=== PATIENT | male | born 1985 | race Hispanic/Latino ===

== ENCOUNTER 2018-11-17 15:33 | Inpatient (IN) | payer OTHER ==
[~2018-11-17] VITALS: Ht 165.1 cm; Wt 85.4 kg
[2018-11-17] MEDS ORDERED: TRAZ-160 PO (15:53)
[2018-11-17] MEDS ORDERED: CELE10TA PO (15:53)
[2018-11-17] MEDS ORDERED: ZANTTAB PO (15:53)
[2018-11-17] MEDS ORDERED: NS 1,000 ML IV ONE (16:00)
[2018-11-17 16:24] LABS: BASO # 0.1 10^3/uL (0.0-0.2); EOS # 0.1 10^3/uL (0.0-0.50); EOS % 0.9 % (0.0-3.0); HEMATOCRIT 44.8 % (42.0-52.0); HEMOGLOBIN 15.1 g/dl (13.5-17.5); LYMPH # 3.7 10^3/uL (1.5-4.5); LYMPH % 35.5 % (24.0-44.0); MEAN CORPUSCULAR HEMOGLOBIN 29.5 pg (27.0-33.0); MEAN CORPUSCULAR HGB CONC 33.7 g/dl (32.0-36.5); MEAN CORPUSCULAR VOLUME 87.5 fl (80.0-96.0); MONO # 0.9 10^3/uL (0.0-0.8); MONO % 8.4 % (0.0-5.0); NEUTROPHILS # 5.6 10^3/uL (1.8-7.7); NEUTROPHILS % 53.9 % (36.0-66.0); PLATELET COUNT, AUTOMATED 299 10^3/uL (150-450); RED BLOOD COUNT 5.12 10^6/uL (4.30-6.10); WHITE BLOOD COUNT 10.4 10^3/uL (4.0-10.0)
[2018-11-17 16:45] LABS: ACETAMINOPHEN LEVEL < 2.0 UG/ML (10.0-30.0); ALBUMIN 4.5 GM/DL (3.2-5.2); ALT/SGPT 86 U/L (12-78); BILIRUBIN,DIRECT 0.2 MG/DL (0.0-0.2); BILIRUBIN,TOTAL 0.9 MG/DL (0.2-1.0); BLOOD UREA NITROGEN 8 MG/DL (7-18); CARBON DIOXIDE LEVEL 32 MEQ/L (21-32); CHLORIDE LEVEL 105 MEQ/L (98-107); CREATININE FOR GFR 1.09 MG/DL (0.70-1.30); ETHYL ALCOHOL (ETHANOL) < 0.003 % (0.000-0.010); GLOMERULAR FILTRATION RATE > 60.0 (>60); GLUCOSE, FASTING 87 MG/DL (70-100); POTASSIUM SERUM 3.3 MEQ/L (3.5-5.1); SALICYLATE LEVEL < 1.7 MG/DL (5.0-30.0); SODIUM LEVEL 141 MEQ/L (136-145); TOTAL PROTEIN 8.3 GM/DL (6.4-8.2)
[2018-11-17] MEDS ORDERED: CHARCOAL ACTIVATED LIQUID 25 GM/120 ML BTL PO ONE (16:45)
[2018-11-17 17:01] LABS: AMPHETAMINES LEVEL URINE NEGATIVE (NEGATIVE); BARBITURATES URINE NEGATIVE (NEGATIVE); BENZODIAZEPINES URINE NEGATIVE (NEGATIVE); CANNABINOIDS URINE NEGATIVE (NEGATIVE); COCAINE METABOLITE URINE NEGATIVE (NEGATIVE); METHADONE URINE NEGATIVE (NEGATIVE); OPIATES URINE NEGATIVE (NEGATIVE); PHENCYCLIDINE URINE NEGATIVE (NEGATIVE)
[2018-11-17] MEDS ORDERED: DIPH25TA4 PO (17:21)
[2018-11-17] MEDS ORDERED: LEXA1TAB PO (17:26)
[2018-11-17] MEDS: NS 1,000 ML IV SCH (18:19)
--- NOTE | 2018-11-17 18:53 | HPEPDOC ---
[facility] Medical History & Physical Date of Admission November 17, 2018 History and Physical CHIEF COMPLAINT: Suicide attempt/drug overdose HISTORY OF PRESENT ILLNESS: 33 yo male for intentional drug overdose with citalopram and benadryl as suicide attempt. Patient states has been having personal issues with his girlfriend. States this is not his first attempt suicide, previously few months ago in [facility]. Apparently he had driven himself to the hospital, then called his senior for help (Jenae Rosales). Currently denies chest pain, shortness of breath, headaches, abdominal pain, n/v/d. PAST MEDICAL HISTORY: Previous suicide attempt. Depression. ALLERGIES: Please see below. REVIEW OF SYSTEMS: Negative except as per HPI. HOME MEDICATIONS: Please see below. PHYSICAL EXAMINATION: VSS General: NAD, lying comfortably in bed, disheveled HEENT: NC/AT, active charcoal residue on lips, EOMI, PERRL Lungs: CTA B/L Heart: +S1S2, RRR Abd: soft, NT, +BS Ext: no edema LABORATORY DATA: See below. MICROBIOLOGY: Please see below. ASSESSMENT: 33 yo male for intentional drug overdose: #suicide attempt - s/p activated charcoal - poison control was contacted in ER - recommend 24 hours telemetry monitoring - suicide precautions #depression - anti-depressants on hold #DVT prophylaxis - mechanical Dispo: monitor on tele for 24 hours, then psych c/s Vital Signs Vital Signs Date Time Temp Pulse Resp B/P (MAP) Pulse Ox O2 Delivery O2 Flow Rate FiO2 11/17/18 18:18 97.8 93 96 11/17/18 18:15 131/70 (90) 11/17/18 15:34 18 Room Air Laboratory Data Labs 24H Laboratory Tests 2 11/17/18 15:56: Immature Granulocyte % (Auto) 0.3, White Blood Count 10.4H, Red Blood Count 5.12, Hemoglobin 15.1, Hematocrit 44.8, Mean Corpuscular Volume 87.5, Mean Corpuscular Hemoglobin 29.5, Mean Corpuscular Hemoglobin Concent 33.7, Red Cell Distribution Width 13.2, Platelet Count 299, Neutrophils (%) (Auto) 53.9, Lymphocytes (%) (Auto) 35.5, Monocytes (%) (Auto) 8.4H, Eosinophils (%) (Auto) 0.9, Basophils (%) (Auto) 1.0, Neutrophils # (Auto) 5.6, Lymphocytes # (Auto) 3.7, Monocytes # (Auto) 0.9H, Eosinophils # (Auto) 0.1, Basophils # (Auto) 0.1, Nucleated Red Blood Cells % (auto) 0.0, Anion Gap 4L, Glomerular Filtration Rate > 60.0, Calcium Level 9.0, Aspartate Amino Transf (AST/SGOT) 45H, Alanine Aminotransferase (ALT/SGPT) 86H, Alkaline Phosphatase 83, Total Bilirubin 0.9, Direct Bilirubin 0.2, Total Protein 8.3H, Albumin 4.5, Albumin/Globulin Ratio 1.18, Thyroid Stimulating Hormone (TSH) 1.940, Salicylates Level < 1.7L, Acetaminophen Level < 2.0L, Ethyl Alcohol Level < 0.003 11/17/18 16:17: Urine Amphetamines Screen NEGATIVE, Urine Benzodiazepines Screen NEGATIVE, Urine Opiates Screen NEGATIVE, Urine Methadone Screen NEGATIVE, Urine Barbiturates Screen NEGATIVE, Urine Phencyclidine Screen NEGATIVE, Urine Cocaine Metabolite Screen NEGATIVE, Urine Cannabinoids Screen NEGATIVE CBC/BMP Laboratory Tests 11/17/18 15:56 Red Blood Count 5.12, Mean Corpuscular Volume 87.5, Mean Corpuscular Hemoglobin 29.5, Mean Corpuscular Hemoglobin Concent 33.7, Red Cell Distribution Width 13.2, Neutrophils (%) (Auto) 53.9, Lymphocytes (%) (Auto) 35.5, Monocytes (%) (Auto) 8.4 H, Eosinophils (%) (Auto) 0.9, Basophils (%) (Auto) 1.0, Neutrophils # (Auto) 5.6, Lymphocytes # (Auto) 3.7, Monocytes # (Auto) 0.9 H, Eosinophils # (Auto) 0.1, Basophils # (Auto) 0.1 Home Medications Scheduled Escitalopram Oxalate (Lexapro) 10 Mg Tablet, 10 MG PO DAILY Ranitidine Hcl (Zantac) 150 Mg Tablet, 1 TAB PO DAILY Trazodone HCl (Trazodone HCl) 50 Mg Tablet, 50 MG PO QPM Scheduled PRN diphenhydrAMINE HCl (diphenhydrAMINE HCl) 25 Mg Tablet, 25 MG PO DAILY PRN for ITCHING Allergies Coded Allergies: No Known Drug Allergies (Verified Allergy, Unknown, 11/17/18) XAVI VASQUEZ MD November 17, 2018 18:53
--- NOTE | 2018-11-17 21:37 | ECGEPIP ---
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
[2018-11-17 21:46] VITALS: BP 126/77; O2SAT 98
[2018-11-17 22:00] VITALS: O2SAT 97
[2018-11-17 23:00] VITALS: O2SAT 97
[2018-11-18] VITALS (11 sets, daily range): BP systolic 114–131; BP diastolic 63–80; O2SAT 97–98
[2018-11-18] MEDS: NS 1,000 ML IV SCH (03:54)
[2018-11-18 05:39] LABS: BASO # 0.1 10^3/uL (0.0-0.2); BASO % 1.1 % (0.0-1.0); EOS # 0.2 10^3/uL (0.0-0.50); HEMATOCRIT 42.4 % (42.0-52.0); LYMPH # 3.4 10^3/uL (1.5-4.5); MEAN CORPUSCULAR HEMOGLOBIN 29.6 pg (27.0-33.0); MEAN CORPUSCULAR VOLUME 89.6 fl (80.0-96.0); MONO % 11.9 % (0.0-5.0); NEUTROPHILS # 3.8 10^3/uL (1.8-7.7); NEUTROPHILS % 44.8 % (36.0-66.0); PLATELET COUNT, AUTOMATED 263 10^3/uL (150-450); RED BLOOD COUNT 4.73 10^6/uL (4.30-6.10); WHITE BLOOD COUNT 8.4 10^3/uL (4.0-10.0)
[2018-11-18 06:02] LABS: ALBUMIN 3.8 GM/DL (3.2-5.2); ALT/SGPT 70 U/L (12-78); BLOOD UREA NITROGEN 8 MG/DL (7-18); CALCIUM LEVEL 8.1 MG/DL (8.5-10.1); CARBON DIOXIDE LEVEL 27 MEQ/L (21-32); CHLORIDE LEVEL 110 MEQ/L (98-107); CREATININE FOR GFR 1.12 MG/DL (0.70-1.30); GLOMERULAR FILTRATION RATE > 60.0 (>60); GLUCOSE, FASTING 88 MG/DL (70-100); MAGNESIUM LEVEL 2.4 MG/DL (1.8-2.4); PHOSPHORUS LEVEL 3.4 MG/DL (2.5-4.9); POTASSIUM SERUM 3.5 MEQ/L (3.5-5.1); SODIUM LEVEL 142 MEQ/L (136-145)
--- NOTE | 2018-11-18 16:46 | IPNPDOC ---
Text Note Date of Service The patient was seen on 11/18/18. NOTE Subjective: Patient seen and examined at bedside. No acute overnight events reported. Patient has no new medical complaints this morning. PHYSICAL EXAMINATION: VSS General: NAD, lying comfortably in bed, disheveled HEENT: NC/AT, PERRL Lungs: CTA B/L Heart: +S1S2, RRR Abd: soft, NT, +BS Ext: no edema LABORATORY DATA: See below. MICROBIOLOGY: Please see below. ASSESSMENT: 33 yo male for intentional drug overdose: #suicide attempt - s/p activated charcoal - poison control was contacted in ER - recommended 24 hours telemetry monitoring - suicide precautions #depression - anti-depressants on hold #DVT prophylaxis - mechanical Dispo: paged psychiatry 3x - still waiting for call back A-FIB/CHADSVASC A-FIB History Current/History of A-Fib/PAF?: No VS,Fishbone, I+O VS, Fishbone, I+O Laboratory Tests 11/18/18 04:54 Red Blood Count 4.73, Mean Corpuscular Volume 89.6, Mean Corpuscular Hemoglobin 29.6, Mean Corpuscular Hemoglobin Concent 33.0, Red Cell Distribution Width 13.4 , Neutrophils (%) (Auto) 44.8, Lymphocytes (%) (Auto) 40.0, Monocytes (%) (Auto) 11.9 H, Eosinophils (%) (Auto) 2.0, Basophils (%) (Auto) 1.1 H, Neutrophils # (Auto) 3.8, Lymphocytes # (Auto) 3.4, Monocytes # (Auto) 1.0 H, Eosinophils # (Auto) 0.2, Basophils # (Auto) 0.1, Calcium Level 8.1 L, Phosphorus Level 3.4, Aspartate Amino Transf (AST/SGOT) 38 H, Alanine Aminotransferase (ALT/SGPT) 70, Alkaline Phosphatase 67, Total Bilirubin 1.0, Total Protein 7.0, Albumin 3.8 Vital Signs Date Time Temp Pulse Resp B/P (MAP) Pulse Ox O2 Delivery O2 Flow Rate FiO2 11/18/18 08:00 97.1 77 15 121/78 (92) 99 11/18/18 06:00 Room Air I&O- Last 24 Hours up to 6 AM 11/18/18 06:00 Intake Total 2200 ml Output Total 600 ml Balance 1600 ml XAVI VASQUEZ MD November 18, 2018 16:46
--- NOTE | 2018-11-18 16:57 | ECGEPIP ---
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
[2018-11-19 03:56] LABS: BASO # 0.1 10^3/uL (0.0-0.2); EOS # 0.3 10^3/uL (0.0-0.50); EOS % 2.4 % (0.0-3.0); HEMATOCRIT 44.1 % (42.0-52.0); HEMOGLOBIN 14.6 g/dl (13.5-17.5); LYMPH # 4.2 10^3/uL (1.5-4.5); LYMPH % 37.2 % (24.0-44.0); MEAN CORPUSCULAR HEMOGLOBIN 29.6 pg (27.0-33.0); MEAN CORPUSCULAR HGB CONC 33.1 g/dl (32.0-36.5); MEAN CORPUSCULAR VOLUME 89.3 fl (80.0-96.0); MONO # 1.1 10^3/uL (0.0-0.8); MONO % 9.7 % (0.0-5.0); NEUTROPHILS # 5.6 10^3/uL (1.8-7.7); NEUTROPHILS % 49.4 % (36.0-66.0); PLATELET COUNT, AUTOMATED 250 10^3/uL (150-450); RED BLOOD COUNT 4.94 10^6/uL (4.30-6.10); WHITE BLOOD COUNT 11.2 10^3/uL (4.0-10.0)
[2018-11-19 04:00] VITALS: BP 109/69
[2018-11-19 04:20] LABS: ALBUMIN 3.7 GM/DL (3.2-5.2); ALT/SGPT 66 U/L (12-78); BILIRUBIN,TOTAL 0.3 MG/DL (0.2-1.0); BLOOD UREA NITROGEN 9 MG/DL (7-18); CALCIUM LEVEL 8.2 MG/DL (8.5-10.1); CARBON DIOXIDE LEVEL 26 MEQ/L (21-32); CHLORIDE LEVEL 108 MEQ/L (98-107); CREATININE FOR GFR 0.97 MG/DL (0.70-1.30); GLOMERULAR FILTRATION RATE > 60.0 (>60); GLUCOSE, FASTING 90 MG/DL (70-100); POTASSIUM SERUM 3.5 MEQ/L (3.5-5.1); SODIUM LEVEL 139 MEQ/L (136-145)
[2018-11-19 09:41] VITALS: BP 127/73
--- NOTE | 2018-11-19 13:12 | DS.PDOC ---
Discharge Summary General Date of Admission November 17, 2018 at 18:48 Date of Discharge 11/19/18 Specialist/Consultants Involve: ALISIA GONZÁLES MD Discharge Summary PROCEDURES PERFORMED DURING STAY: [None]. ADMITTING DIAGNOSES: 1. Drug overdose/suicide attempt 2. Hx of suicide attempt COMPLICATIONS/CHIEF COMPLAINT: Overdose,Suicidal Ideation. HISTORY OF PRESENT ILLNESS: 33 yo male for intentional drug overdose with citalopram and benadryl as suicide attempt. Patient states has been having personal issues with his girlfriend. States this is not his first attempt suicide, previously few months ago in [facility]. Apparently he had driven himself to the hospital, then called his senior for help (Jenae Rosales). Currently denies chest pain, shortness of breath, headaches, abdominal pain, n/v/d. HOSPITAL COURSE: Patient admitted for further evaluation and treatment. Poison control contacted by ER with recs for 24 hour observation. No events on telemetry. No complications during observation. Seen by psychiatry today, anticipated discharge to [facility]. DISCHARGE MEDICATIONS: Please see below. ALLERGIES: Please see below. PHYSICAL EXAMINATION ON DISCHARGE: VSS General: NAD, lying comfortably in bed HEENT: NC/AT, EOMI, PERRL Lungs: CTA B/L Heart: +S1S2, RRR Abd: soft, NT, +BS Ext: no edema LABORATORY DATA: Please see below. ACTIVITY: [As tolerated]. DIET: regular DISCHARGE PLAN: Anticipated discharge to [facility] DISCHARGE INSTRUCTIONS: 1. Discharge to [facility] 2. Recommend follow up with PCP in 1-3 days after d/c from [facility] DISCHARGE CONDITION: [Stable]. TIME SPENT ON DISCHARGE: Greater than 30 minutes. Vital Signs/I&Os Vital Signs Date Time Temp Pulse Resp B/P (MAP) Pulse Ox O2 Delivery O2 Flow Rate FiO2 11/19/18 09:41 98.3 68 16 127/73 (91) 98 11/18/18 06:00 Room Air I&O- Last 24 Hours up to 6 AM 11/19/18 06:00 Intake Total 1120 ml Output Total 0 ml Balance 1120 ml Laboratory Data Labs 24H Laboratory Tests 2 11/19/18 03:39: Immature Granulocyte % (Auto) 0.3, White Blood Count 11.2H, Red Blood Count 4.94, Hemoglobin 14.6, Hematocrit 44.1, Mean Corpuscular Volume 89.3, Mean Corpuscular Hemoglobin 29.6, Mean Corpuscular Hemoglobin Concent 33.1, Red Cell Distribution Width 13.2, Platelet Count 250, Neutrophils (%) (Auto) 49.4, Lymphocytes (%) (Auto) 37.2, Monocytes (%) (Auto) 9.7H, Eosinophils (%) (Auto) 2.4, Basophils (%) (Auto) 1.0, Neutrophils # (Auto) 5.6, Lymphocytes # (Auto) 4.2, Monocytes # (Auto) 1.1H, Eosinophils # (Auto) 0.3, Basophils # (Auto) 0.1, Nucleated Red Blood Cells % (auto) 0.0, Anion Gap 5L, Glomerular Filtration Rate > 60.0, Blood Urea Nitrogen 9, Creatinine 0.97, Sodium Level 139, Potassium Level 3.5, Chloride Level 108H, Carbon Dioxide Level 26, Calcium Level 8.2L, Aspartate Amino Transf (AST/SGOT) 30, Alanine Aminotransferase (ALT/SGPT) 66, Alkaline Phosphatase 82, Total Bilirubin 0.3#, Total Protein 7.0, Albumin 3.7, Albumin/Globulin Ratio 1.12 CBC/BMP Laboratory Tests 11/19/18 03:39 Red Blood Count 4.94, Mean Corpuscular Volume 89.3, Mean Corpuscular Hemoglobin 29.6, Mean Corpuscular Hemoglobin Concent 33.1, Red Cell Distribution Width 13.2, Neutrophils (%) (Auto) 49.4, Lymphocytes (%) (Auto) 37.2, Monocytes (%) (Auto) 9.7 H, Eosinophils (%) (Auto) 2.4, Basophils (%) (Auto) 1.0, Neutrophils # (Auto) 5.6, Lymphocytes # (Auto) 4.2, Monocytes # (Auto) 1.1 H, Eosinophils # (Auto) 0.3, Basophils # (Auto) 0.1, Calcium Level 8.2 L, Aspartate Amino Transf (AST/SGOT) 30, Alanine Aminotransferase (ALT/SGPT) 66, Alkaline Phosphatase 82, Total Bilirubin 0.3 #, Total Protein 7.0, Albumin 3.7 Discharge Medications Scheduled Escitalopram Oxalate (Lexapro) 10 Mg Tablet, 10 MG PO DAILY, (Reported) Ranitidine Hcl (Zantac) 150 Mg Tablet, 1 TAB PO DAILY, (Reported) Trazodone HCl (Trazodone HCl) 50 Mg Tablet, 50 MG PO QPM, (Reported) Scheduled PRN diphenhydrAMINE HCl (diphenhydrAMINE HCl) 25 Mg Tablet, 25 MG PO DAILY PRN for ITCHING, (Reported) Allergies Coded Allergies: No Known Drug Allergies (Verified Allergy, Unknown, 11/17/18) XAVI VASQUEZ MD November 19, 2018 13:12
[2018-11-19] MEDS ORDERED: hydrOXYzine 25 MG TAB PO PRN (14:45)
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
[2018-11-19 17:51] VITALS: BP 121/74
[2018-11-19] MEDS ORDERED: QUEtiapine FUMARATE 50 MG TAB PO SCH (21:00)
[2018-11-20] MEDS ORDERED: SERTRALINE HCL 50 MG TAB PO SCH (09:00)
== END 2018-11-19 18:54 | DRG 918 ==
LOC: M ED 15:33 → M ED INP 18:48 → M ICU 21:46
PROVIDERS: ADMIT Internal Medicine; ATTEND Internal Medicine
DX: T45.0X2A Poisoning by antiallergic and antiemetic drugs, intentional self-harm, initial encounter (principal); T43.222A Poisoning by selective serotonin reuptake inhibitors, intentional self-harm, initial encounter; Z79.899 Other long term (current) drug therapy; F32.9 Major depressive disorder, single episode, unspecified; F17.200 Nicotine dependence, unspecified, uncomplicated

== ENCOUNTER 2018-11-19 17:54 | Inpatient (IN) | payer OTHER ==
[~2018-11-19] VITALS: Ht 165.1 cm; Wt 85.3 kg
[~2018-11-19 17:54] MED LIST: CELE10TA PO; DIPH25TA4 PO; LEXA1TAB PO; TRAZ-160 PO; ZANTTAB PO
[2018-11-19] MEDS ORDERED: MOM 30ML SUSPENSION UDC PO PRN (18:00)
[2018-11-19] MEDS ORDERED: hydrOXYzine 25 MG TAB PO PRN (18:00)
[2018-11-19] MEDS ORDERED: ACETAMINOPHEN TAB 650MG DOSE (2X325MG) PO PRN (18:00)
[2018-11-19] MEDS ORDERED: MAALOX 30 ML SUSP *UDC PO PRN (18:00)
[2018-11-19 19:07] VITALS: BP 149/89
[2018-11-20] MEDS: QUEtiapine FUMARATE 50 MG TAB PO SCH ×2 (01:20→22:22)
[2018-11-20 06:30] VITALS: BP 138/72
[2018-11-20] MEDS: NICOTINE 21MG/24HR 1 EA TRANSDERMAL TD SCH (08:50)
[2018-11-20] MEDS: SERTRALINE HCL 50 MG TAB PO SCH (08:53)
[2018-11-20 11:06] VITALS: BP 138/72
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
--- NOTE | 2018-11-20 15:04 | HPEPDOC ---
General Date of Admission November 19, 2018 at 18:55 Attending Physician: NANCY BURGOS MD Chief Complaint The patient is a 33-year-old male admitted with a reason for visit of Major Depressive Disorder. History of Present Illness Patient is a 33-year-old male, past medical history significant for obesity, depression, anxiety, admitted after suicide attempt with drug overdose. Review of medical record states patient had been having personal problems with his girlfriend for which he tried to overdose. He was admitted to ICU, and treated for drug overdose. Subsequently was discharged to inpatient psychiatric unit for further evaluation and management. Allergies Coded Allergies: No Known Drug Allergies (Verified Allergy, Unknown, 11/17/18) Past Medical History Medical History Depression and anxiety Nicotine dependence Obesity Suicide attempt Family History Significant Family History: No pertinent family hx Social History * Smoker: less than 1 pack/day Alcohol: occationally Drugs: denies A-FIB/CHADSVASC A-FIB History Current/History of A-Fib/PAF?: No Current Oral Anticoagulant The: No Review of Systems Other systems A 10 point pertinent review of systems is completed and negative as stated in history of presenting illness Physical Examination Other physical findings General: NAD. Skin: Warm, dry, intact. Cardiovascular: Regular rate and rhythm, no MRG, no jugular venous distention, no edema. Respiratory:CTAB, no accessory muscle use noted. Abdomen: Bowel sounds +, no tenderness, no distention Musculoskeletal: right lower leg deformity Neurologic: CN 2-12 grossly intact, alert and oriented 3 Psychiatric: Appropriate mood and affect, no anxiety or agitation. Vital Signs Vital Signs Date Time Temp Pulse Resp B/P (MAP) Pulse Ox O2 Delivery O2 Flow Rate FiO2 11/20/18 11:06 98.0 64 14 138/72 Assessment/Plan Obesity -Therapeutic lifestyle changes encouraged Suicide attempt -Status post treatment in ICU and discharged to inpatient psychiatric unit -Continued management per primary team Depression and anxiety -Management by primary team Nicotine dependence -Has been counseled -Management by primary team DVT prophylaxis -Frequently ambulatory Plan / VTE VTE Prophylaxis Ordered?: No VTE Exclusion Mechanical Proph: Low Risk for VTE ADEEL WINNP November 20, 2018 15:04
[2018-11-20 18:00] VITALS: BP 125/64
[2018-11-21] MEDS: QUEtiapine FUMARATE 50 MG TAB PO SCH ×2 (00:11→22:25)
[2018-11-21 06:38] VITALS: BP 123/66
[2018-11-21] MEDS: NICOTINE 21MG/24HR 1 EA TRANSDERMAL TD SCH (09:00)
[2018-11-21] MEDS: SERTRALINE HCL 50 MG TAB PO SCH (09:02)
[2018-11-21 18:00] VITALS: BP 132/74
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
[2018-11-22 06:46] VITALS: BP 119/70
[2018-11-22] MEDS: NICOTINE 21MG/24HR 1 EA TRANSDERMAL TD SCH (09:00)
[2018-11-22] MEDS: SERTRALINE HCL 50 MG TAB PO SCH (09:27)
[2018-11-22 18:17] VITALS: BP 145/81
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
[2018-11-22] MEDS: QUEtiapine FUMARATE 50 MG TAB PO SCH (21:33)
[2018-11-23 06:57] VITALS: BP 122/65
[2018-11-23] MEDS: NICOTINE 21MG/24HR 1 EA TRANSDERMAL TD SCH (09:00)
[2018-11-23] MEDS: SERTRALINE HCL 25 MG TABLET PO SCH (09:31)
[2018-11-23 18:00] VITALS: BP 131/75
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
[2018-11-23] MEDS: QUEtiapine FUMARATE 50 MG TAB PO SCH (21:41)
[2018-11-24 07:16] VITALS: BP 104/63
[2018-11-24] MEDS: NICOTINE 21MG/24HR 1 EA TRANSDERMAL TD SCH (09:00)
[2018-11-24] MEDS: SERTRALINE HCL 25 MG TABLET PO SCH (09:31)
[2018-11-24 18:39] VITALS: BP 135/82
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
[2018-11-24] MEDS: QUEtiapine FUMARATE 50 MG TAB PO SCH (22:16)
[2018-11-25 06:40] VITALS: BP 120/61
[2018-11-25] MEDS: SERTRALINE HCL 25 MG TABLET PO SCH (08:25)
[2018-11-25] MEDS: NICOTINE 21MG/24HR 1 EA TRANSDERMAL TD SCH (08:26)
[2018-11-25] MEDS ORDERED: NICO21PAT TD (10:01)
[2018-11-25] MEDS ORDERED: SERT25TA88 PO (10:01)
[2018-11-25] MEDS ORDERED: QUET5TAB PO (10:01)
[2018-11-25] MEDS ORDERED: HYDR-3363 PO (10:01)
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
== END 2018-11-25 14:20 | disposition home or self-care (01) | DRG 885 ==
LOC: M PSY 18:55
PROVIDERS: ADMIT Psychiatry & Neurology Psychiatry; ATTEND Psychiatry & Neurology Psychiatry
DX: F33.2 Major depressive disorder, recurrent severe without psychotic features (principal); F41.1 Generalized anxiety disorder; F43.10 Post-traumatic stress disorder, unspecified; F17.210 Nicotine dependence, cigarettes, uncomplicated; Z91.82 Personal history of military deployment; Z63.0 Problems in relationship with spouse or partner; Z91.5 Personal history of self-harm; E66.9 Obesity, unspecified; Z63.4 Disappearance and death of family member

== ENCOUNTER 2019-01-12 09:29 | Inpatient (IN) | payer OTHER ==
[~2019-01-12] VITALS: Ht 165.1 cm; Wt 84.6 kg
[~2019-01-12 09:29] MED LIST changes: +HYDR-3363 PO; +NICO21PAT TD; +QUET5TAB PO; +SERT25TA88 PO; -TRAZ-160 PO; +TRAZ-252 PO
[2019-01-12 10:46] LABS: HEMATOCRIT 43.6 % (42.0-52.0); HEMOGLOBIN 14.8 g/dl (13.5-17.5); MEAN CORPUSCULAR HEMOGLOBIN 29.5 pg (27.0-33.0); MEAN CORPUSCULAR HGB CONC 33.9 g/dl (32.0-36.5); PLATELET COUNT, AUTOMATED 284 10^3/uL (150-450); RED BLOOD COUNT 5.01 10^6/uL (4.30-6.10); WHITE BLOOD COUNT 10.1 10^3/uL (4.0-10.0)
[2019-01-12 11:23] LABS: ACETAMINOPHEN LEVEL < 2.0 UG/ML (10.0-30.0); ALBUMIN 4.2 GM/DL (3.2-5.2); ALT/SGPT 103 U/L (12-78); BILIRUBIN,DIRECT 0.2 MG/DL (0.0-0.2); BILIRUBIN,TOTAL 0.8 MG/DL (0.2-1.0); BLOOD UREA NITROGEN 12 MG/DL (7-18); CALCIUM LEVEL 8.9 MG/DL (8.5-10.1); CARBON DIOXIDE LEVEL 25 MEQ/L (21-32); CHLORIDE LEVEL 108 MEQ/L (98-107); CREATININE FOR GFR 0.88 MG/DL (0.70-1.30); ETHYL ALCOHOL (ETHANOL) < 0.003 % (0.000-0.010); GLOMERULAR FILTRATION RATE > 60.0 (>60); GLUCOSE, FASTING 102 MG/DL (70-100); SALICYLATE LEVEL < 1.7 MG/DL (5.0-30.0); SODIUM LEVEL 140 MEQ/L (136-145); THYROID STIMULATING HORMONE 0.777 uIU/ML (0.358-3.740); TOTAL PROTEIN 7.7 GM/DL (6.4-8.2)
[2019-01-12 12:03] LABS: AMPHETAMINES LEVEL URINE NEGATIVE (NEGATIVE); BARBITURATES URINE NEGATIVE (NEGATIVE); BENZODIAZEPINES URINE NEGATIVE (NEGATIVE); CANNABINOIDS URINE NEGATIVE (NEGATIVE); COCAINE METABOLITE URINE NEGATIVE (NEGATIVE); METHADONE URINE NEGATIVE (NEGATIVE); OPIATES URINE NEGATIVE (NEGATIVE); PHENCYCLIDINE URINE NEGATIVE (NEGATIVE)
[2019-01-12] MEDS ORDERED: CYCL10TA PO (13:41)
[2019-01-12] MEDS ORDERED: SERT-138 PO (13:41)
[2019-01-12] MEDS ORDERED: TRAZ1TAB10 PO (13:41)
[2019-01-12] MEDS ORDERED: MOM 30ML SUSPENSION UDC PO PRN (13:45)
[2019-01-12] MEDS ORDERED: ACETAMINOPHEN TAB 650MG DOSE (2X325MG) PO PRN (13:45)
[2019-01-12] MEDS ORDERED: MAALOX 30 ML SUSP *UDC PO PRN (13:45)
[2019-01-12] MEDS: SERTRALINE 100 MG TAB PO SCH (14:00)
[2019-01-12 14:34] VITALS: BP 147/86
[2019-01-12] MEDS ORDERED: NICOTINE 14 MG/24 HR TRANSDERMAL TD PRN (17:45)
[2019-01-12 18:31] VITALS: BP 123/70
[2019-01-12] MEDS: traZODone 50 MG TAB PO PRN (22:01)
[2019-01-13 06:42] VITALS: BP 135/70
[2019-01-13] MEDS: SERTRALINE 100 MG TAB PO SCH (09:45)
--- NOTE | 2019-01-13 09:47 | HPEPDOC ---
General Date of Admission Jan 12, 2019 at 13:33 Date of Service: Jan 13, 2019 Attending Physician: NANCY BURGOS MD Chief Complaint The patient is a 33-year-old male admitted with a reason for visit of Unspecified Depressive Disorder. History of Present Illness Yasmin Kendall is a 33 year old male, with past medical history significant for anxiety, presenting on account of suicidal ideation with a plan to jump off a building or to run out into traffic. He was admitted to inpatient psychiatric unit for further evaluation and management. Patient has a prior history of suicidal attempt with drug overdose and was recently hospitalized last month after suicide attempt . On assessment, he reports reason for persistent suicidal ideation is due to strained relationship with his girlfriend. 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 He denies physical symptoms such as chest pain, shortness of breath, weakness, abdominal pain, nausea, chills or fever. Home Medications Scheduled Sertraline HCl (Sertraline HCl) 100 Mg Tablet, 100 MG PO DAILY, (Reported) Trazodone HCl (Trazodone HCl) 50 Mg Tablet, 50 MG PO QHS, (Reported) Scheduled PRN Cyclobenzaprine HCl (Cyclobenzaprine HCl) 10 Mg Tablet, 10 MG PO TID PRN for MUSCLE SPASMS, (Reported) Allergies Coded Allergies: No Known Drug Allergies (Verified Allergy, Unknown, 11/17/18) Past Medical History Medical History Depression and anxiety Nicotine dependence Obesity Suicide attempt Family History Significant Family History: No pertinent family hx Social History * Smoker: current smoker, less than 1 pack/day Alcohol: occationally Drugs: denies Psychosocial History: Prior suicide attempt A-FIB/CHADSVASC A-FIB History Current/History of A-Fib/PAF?: No Current PO Anticoag Therapy: No Review of Systems Other systems A 10 point pertinent review of systems was completed, negative except as stated in the history of presenting illness. Physical Examination Other physical findings GENERAL: NAD SKIN : Warm, dry intact HEENT: Atraumatic, normocephalic, PERRL, moist mucous membrane CARDIOVASCULAR: Regular rate and rhythm, S1S2, no JVD, no edema, distal pulses + and palpable RESP: CTAB, no accessory muscle use noted ABDOMEN: BS+ non distended non tender MS: no joint deformities NEURO: Alert and oriented x 3, CN2-12 grossly intact PSYCH: depressed affect Vital Signs Vital Signs Date Time Temp Pulse Resp B/P (MAP) Pulse Ox O2 Delivery O2 Flow Rate FiO2 01/13/19 06:42 98.2 63 14 135/70 (91) 01/12/19 14:34 96 01/12/19 14:02 Room Air Laboratory Data Labs 24H Laboratory Tests 2 01/12/19 10:29: Nucleated Red Blood Cells % (auto) 0.0, Anion Gap 7L, Glomerular Filtration Rate > 60.0, Calcium Level 8.9, Aspartate Amino Transf (AST/SGOT) 51H, Alanine Aminotransferase (ALT/SGPT) 103H, Alkaline Phosphatase 80, Total Bilirubin 0.8, Direct Bilirubin 0.2, Total Protein 7.7, Albumin 4.2, Albumin/Globulin Ratio 1.20, Thyroid Stimulating Hormone (TSH) 0.777, Salicylates Level < 1.7L, Acetaminophen Level < 2.0L, Ethyl Alcohol Level < 0.003 01/12/19 11:22: Urine Amphetamines Screen NEGATIVE, Urine Benzodiazepines Screen NEGATIVE, Urine Opiates Screen NEGATIVE, Urine Methadone Screen NEGATIVE, Urine Barbiturates Screen NEGATIVE, Urine Phencyclidine Screen NEGATIVE, Urine Cocaine Metabolite Screen NEGATIVE, Urine Cannabinoids Screen NEGATIVE CBC/BMP Laboratory Tests 01/12/19 10:29 Red Blood Count 5.01, Mean Corpuscular Volume 87.0, Mean Corpuscular Hemoglobin 29.5, Mean Corpuscular Hemoglobin Concent 33.9, Red Cell Distribution Width 13.2 Assessment/Plan Transaminitis -AST 51, ALC 103 -Repeat CMP tomorrow -Liver ultrasound if persistently elevated Obesity -Therapeutic lifestyle changes encouraged Depression with Suicidal ideation --Management by primary team Nicotine dependence -Has been counseled -Management by primary team DVT prophylaxis -Frequently ambulatory Plan / VTE VTE Prophylaxis Ordered?: No VTE Exclusion Mechanical Proph: Low Risk for VTE ADEEL WINN Jan 13, 2019 09:47
[2019-01-13] MEDS ORDERED: hydrOXYzine 25 MG TAB PO PRN (11:30)
--- NOTE | 2019-01-13 11:39 | MHHPEPDOC ---
General Date Of Admission: Jan 12, 2019 Legal Status: 9.39 Chief Complaint "I'm depressed." History of Present Illness HISTORY OF THE PRESENT ILLNESS: Patient is a 33 -year-old Tanzanian, AD, male, with a psych history of depression and [facility] admission 11/19/18 for depression/SI who brought to ED after seen as a walk-in at [facility] endorsing worsening depression since his grandfather last August and SI with plan to jump off a building or walk into traffic due to psychosocial stressors of break-up with his girlfriend 3wks ago and problems with his ex- per ED. Pt stated that his ex-girlfriend called him yesterday and they decided to meet up and talk but when met up and started talking they started to argue which caused him to have panic attack that subsided on it's own and when stopped his ex-girlfriend and he started to argue again which made him feel depressed, hopeless, and suicidal. Psychiatric Review of Systems Depression (2 or more weeks): depressed mood, anhedonia, decreased energy, di fficulty concentrating, appetite changes (poor), suicidal thoughts, other (grief) Paige (4 or more days of): denies Psychosis: denies PTSD: history of trauma Anxiety: gen/non-specific anxiety, situational anxiety, stressor related anxiety, panic attacks Anxiety/ 6 months or more of: restlessness, keyed up, difficulty concentrating, irritability, muscle tension Past Psychiatric History Previous Psychiatric Diagnosis: patient has been diagnosed with anxiety in 2010 and depression this year Previous Psychiatric Admissions: He was admitted to a [facility] when he was in [place], [facility] admission 11/19/18 for depression,SI Suicide Attempts: While he was in [place], it prompted and admission Psychiatric Follow-up: rissa Rosales at [facility] Psychiatric medications:Zoloft, Hydroxyzine and Seroquel Past Medical History Medical Problems Right tibial fracture, had 3 surgeries and then on his Right knee (surgeries). He had a cholecystectomy, he says he had neuropathy (numbness in two of his fingers on the right hand) and they "moved his nerve because it was irritated", lower back pain. Head Injury: Yes Seizures: No Hospitalizations: Yes Surgeries: Yes Family Medical/Psychiatric HX Medical Problems denies Psychiatric Disorders: No Addiction: No Suicide Attemps/Completions: No Addiction History nicotine, alcohol (occasionally) Social History Childhood: The patient was born in [place], moved with mother to live with grandmother in [place] at age 16. Says never knew father, had 1 full brother and 4 half siblings (3 brothers, 1 sister) Says childhood was "good", denies any abuse. 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 Social Support: denies since breaking up with girlfriend Legal: Denies Marital: , has 3 children from that marriage Mental Status Examination General Appearance: well groomed, appears stated age, hospital scubs/clothing Build: overweight Demeanor: withdrawn Eye Contact: poor Activity: slowed Behavior: cooperative, loss of interests, anhedonia, withdrawn Speech: slow, low in volume, impoverished Mood: depressed Mood depressed Affect: constricted, flat, congruent Thought Process: logical/linear, depressed Thought Content (Delusions): none reported, denies SI, HI, AVH Thought Content (Other): appropriate, other (grief) Thought Content (Aggressive): none reported Perception (Hallucinations): none reported Perception (Other): none reported Cognition (Impairment of): none reported Cognition(Intelligence Est.): average Oriented: Awake, Alert, Oriented times three Insight: poor Judgment: Poor Psychosis: Denies Diagnoses 1. Major Depressive disorder, recurrent, severe, q/o psychosis 2. Generalized Anxiety disorder 3. PTSD 4. Nicotine use disorder A-FIB/CHADSVASC A-FIB History Current/History of A-Fib/PAF?: No Current PO Anticoag Therapy: No Treatment Treatment ordered: NONE Reason Anticoagulant not given: Not indicated/[id number] Assessment pt seen and states he had issues with his family and girlfriend "legal stuff with my daughters and ex-... had a discussion with my girlfriend... made me feel stressed and overwhelmed so I wished for or not to be me." States he told his guest service team leader who brought him the ED to be evaluated. States he feels depressed today and doesn't feel his meds are helpful, but when first started on zoloft it was and agrees to increase to see if it will help his mood more. Also endorses anhedonia, avolition, being easily fatigued, poor appetite. Denies SI/HI, hallucinations, delusions. Feels safe here. He is very withdrawn and quite when seen. Initial Treatment Plan 1. Patient was admitted on a 9.39 status. 2. Complete history was obtained. 3. With patients permission, family will be contacted and database will be expanded. 4. Patients medication regimen will be reviewed and changed accordingly. 5. Patient will be provided with protected environment. 6. Patient will be treated with individual, group, and milieu therapies. 7. Patient will receive supportive psych-education. 8. Discharge planning will commence immediately. 9. Outpatient follow-up treatment will be strongly recommended. 10. The initial treatment plan will focus initially on: * Depression. * Risk for suicide. * Substance abuse. 11. increase zoloft to 150mg daily ESTIMATED LENGTH OF STAY: 5-7 DAYS. TIME SPENT COUNSELING AND COORDINATING INITIAL CARE: 60 minutes. Vital Signs Vital Signs Date Time Temp Pulse Resp B/P (MAP) Pulse Ox O2 Delivery O2 Flow Rate FiO2 01/13/19 06:42 98.2 63 14 135/70 (91) 01/12/19 14:34 96 01/12/19 14:02 Room Air Laboratory Data 24H Labs Laboratory Tests 2 01/12/19 11:22: Urine Amphetamines Screen NEGATIVE, Urine Benzodiazepines Screen NEGATIVE, Urine Opiates Screen NEGATIVE, Urine Methadone Screen NEGATIVE, Urine Barbiturates Screen NEGATIVE, Urine Phencyclidine Screen NEGATIVE, Urine Cocaine Metabolite Screen NEGATIVE, Urine Cannabinoids Screen NEGATIVE Medications Scheduled Sertraline HCl (Sertraline HCl) 100 Mg Tablet, 100 MG PO DAILY, (Reported) Trazodone HCl (Trazodone HCl) 50 Mg Tablet, 50 MG PO QHS, (Reported) Scheduled PRN Cyclobenzaprine HCl (Cyclobenzaprine HCl) 10 Mg Tablet, 10 MG PO TID PRN for MUSCLE SPASMS, (Reported) Allergies Coded Allergies: No Known Drug Allergies (Verified Allergy, Unknown, 11/17/18) MASON POLO DO Jan 13, 2019 11:39 am
[2019-01-13] MEDS ORDERED: SERTRALINE HCL 50 MG TAB PO ONE (12:00)
[2019-01-13 18:00] VITALS: BP 116/64
[2019-01-13] MEDS: traZODone 50 MG TAB PO PRN (22:03)
[2019-01-14 07:12] VITALS: BP 127/67
[2019-01-14 07:55] LABS: ALBUMIN 4.1 GM/DL (3.2-5.2); ALT/SGPT 110 U/L (12-78); BILIRUBIN,TOTAL 0.7 MG/DL (0.2-1.0); BLOOD UREA NITROGEN 14 MG/DL (7-18); CALCIUM LEVEL 9.4 MG/DL (8.5-10.1); CARBON DIOXIDE LEVEL 28 MEQ/L (21-32); CHLORIDE LEVEL 108 MEQ/L (98-107); CREATININE FOR GFR 1.05 MG/DL (0.70-1.30); GLOMERULAR FILTRATION RATE > 60.0 (>60); GLUCOSE, FASTING 91 MG/DL (70-100); POTASSIUM SERUM 3.9 MEQ/L (3.5-5.1); SODIUM LEVEL 141 MEQ/L (136-145); TOTAL PROTEIN 7.6 GM/DL (6.4-8.2)
[2019-01-14] MEDS: SERTRALINE HCL 50 MG TAB PO SCH (09:23)
--- NOTE | 2019-01-14 10:05 | IPNPDOC ---
Text Note Date of Service The patient was seen on 01/14/19. NOTE Yasmin Kendall is a 33 year old male, with past medical history significant for anxiety, presenting on account of suicidal ideation with a plan to jump off a building or to run out into traffic. Subjective: Today, he states he feels much better than he did yesterday. He de nies chest pain, denies shortness of breath, denies weakness, nausea, diarrhea Physical Examination Other physical findings GENERAL: NAD SKIN : Warm, dry intact HEENT: Atraumatic, normocephalic, PERRL, moist mucous membrane CARDIOVASCULAR: Regular rate and rhythm, S1S2, no JVD, no edema, distal pulses + and palpable RESP: CTAB, no accessory muscle use noted ABDOMEN: BS+ non distended non tender MS: no joint deformities NEURO: Alert and oriented x 3, CN2-12 grossly intact PSYCH: depressed affect Assessment/Plan Transaminitis -Repeat liver enzyme levels this morning persistently elevated -Liver ultrasound has been ordered -Hepatitis panel has also been ordered Obesity -Therapeutic lifestyle changes encouraged Depression with Suicidal ideation --Management by primary team Nicotine dependence -Has been counseled -Management by primary team DVT prophylaxis -Frequently ambulatory VS,Fishbone, I+O VS, Fishbone, I+O Laboratory Tests 01/14/19 07:05 Calcium Level 9.4, Aspartate Amino Transf (AST/SGOT) 47 H, Alanine Aminotransf erase (ALT/SGPT) 110 H, Alkaline Phosphatase 80, Total Bilirubin 0.7, Total Protein 7.6, Albumin 4.1 Vital Signs Date Time Temp Pulse Resp B/P (MAP) Pulse Ox O2 Delivery O2 Flow Rate FiO2 01/14/19 07:12 98.4 69 14 127/67 (87) 01/12/19 14:34 96 01/12/19 14:02 Room Air ADEEL WINNP Jan 14, 2019 10:05
--- NOTE | 2019-01-14 10:36 | MHIPNPDOC ---
[facility] Progress Note Progress Note DATE OF SERVICE: 01/14/19 HISTORY: Patient is a 33 -year-old Palestinian-Tunisian, AD, male, with a psych history of depression and [facility] admission 11/19/18 for depression/SI who brought to ED after seen as a walk-in at [facility] endorsing worsening depression since his grandfather last August and SI with plan to jump off a building or walk into traffic due to psychosocial stressors of break-up with his girlfriend 3wks ago and problems with his ex- per ED. Pt stated that his ex-girlfriend called him yesterday and they decided to meet up and talk but when met up and started talking they started to argue which caused him to have panic attack that subsided on it's own and when stopped his ex-girlfriend and he started to argue again which made him feel depressed, hopeless, and suicidal. VITAL SIGNS: See below. NEW TEST RESULTS: See below. CURRENT MEDICATIONS: See below. MENTAL STATUS EXAMINATION: General Appearance: well groomed, appears stated age, hospital scrubs/clothing Build: overweight Demeanor: less withdrawn Eye Contact: fair Activity: roughly average Behavior: cooperative, less anhedonia, less withdrawn Speech: slow, low in volume, less impoverished Mood: less depressed Mood "better" Affect: less constricted, less flat, congruent Thought Process: logical/linear, depressed Thought Content (Delusions): none reported, denies SI, HI, AVH Thought Content (Other): appropriate, other (grief) Thought Content (Aggressive): none reported Perception (Hallucinations): none reported Perception (Other): none reported Cognition (Impairment of): none reported Cognition(Intelligence Est.): average Oriented: Awake, Alert, Oriented times three Insight: poor Judgment: Poor Psychosis: Denies DIAGNOSES: 1. Major Depressive disorder, recurrent, severe, q/o psychosis 2. Generalized Anxiety disorder 3. PTSD 4. Nicotine use disorder ASSESSMENT:Pt seen and states that his mood is better slightly and appears less constricted, flat and, depressed. Per treatment team [facility] believe pt may benefit from residential treatment in the future given his severe depression. States increase in zoloft feels beneficial for his mood and he's tolerating it well. States he slept well last night. Feels he is tolerating his medications and they're beneficial. He is attending groups and finding them helpful. He is social in the milieu and not isolating in his room. States his girlfriend and he talked on the phone and she told him she would like to remain in a relation ship with him and support him regarding his needs which he stated was nice to hear. He denies SI/HI, hallucinations, delusions. Pt feels safe here. MANAGEMENT PLAN: continue plan Medications: zoloft 150mg daily abilify 2.5mg daily TIME SPENT: 30 minutes. Vital Signs Vital Signs Date Time Temp Pulse Resp B/P (MAP) Pulse Ox O2 Delivery O2 Flow Rate FiO2 01/14/19 07:12 98.4 69 14 127/67 (87) 01/12/19 14:34 96 01/12/19 14:02 Room Air Laboratory Data 24H Labs Laboratory Tests 2 01/14/19 07:05: Anion Gap 5L, Glomerular Filtration Rate > 60.0, Blood Urea Nitrogen 14, Creatinine 1.05, Sodium Level 141, Potassium Level 3.9, Chloride Level 108H, Carbon Dioxide Level 28, Calcium Level 9.4, Aspartate Amino Transf (AST/SGOT) 47H, Alanine Aminotransferase (ALT/SGPT) 110H, Alkaline Phosphatase 80, Total Bilirubin 0.7, Total Protein 7.6, Albumin 4.1, Albumin/Globulin Ratio 1.17 CBC/BMP Laboratory Tests 01/14/19 07:05 Calcium Level 9.4, Aspartate Amino Transf (AST/SGOT) 47 H, Alanine Aminotransferase (ALT/SGPT) 110 H, Alkaline Phosphatase 80, Total Bilirubin 0.7, Total Protein 7.6, Albumin 4.1 Current Medications Current Medications Acetaminophen (Tylenol Tab) 650 mg Q6HP PRN PO HEADACHE or DISCOMFORT; Start 01/12/19 at 13:45 Al Hydrox/Mg Hydrox/Simethicone (Mylanta) 30 ml Q4HP PRN PO H EARTBURN/INDIGESTION; Start 01/12/19 at 13:45 Aripiprazole (AbiLIFY) 2.5 mg BID PO Last administered on 01/14/19at 09:23; Start 01/12/19 at 14:00 Home Med (Med Rec Complete!) ASDIRECTED XX ; Start 01/12/19 at 13:45; Stop 01/12/19 at 13:45; Status DC Hydroxyzine HCl (Atarax) 25 mg Q6HP PRN PO ANXIETY; Start 01/13/19 at 11:30 Magnesium Hydroxide (Milk Of Magnesia) 30 ml DAILYPRN PRN PO CONSTIPATION; Start 01/12/19 at 13:45 Nicotine (Nicoderm Cq 14mg) 1 patch DAILYPRN PRN TD NICOTINE WITHDRAWAL; Start 01/12/19 at 17:45 Sertraline HCl (Zoloft) 100 mg DAILY PO Last administered on 01/13/19at 09:45; Start 01/12/19 at 14:00; Stop 01/13/19 at 11:40; Status DC Sertraline HCl (Zoloft) 150 mg DAILY PO Last administered on 01/14/19at 09:23; Start 01/14/19 at 09:00 Trazodone HCl (Desyrel) 50 mg QHSP PRN PO INSOMNIA Last administered on 01/13/19at 22:03; Start 01/12/19 at 13:45 Allergies Coded Allergies: No Known Drug Allergies (Verified Allergy, Unknown, 11/17/18) MASON POLO DO Jan 14, 2019 10:36 am
[2019-01-14 11:05] LABS: HEPATITIS B SURFACE ANTIGEN NEGATIVE (NEGATIVE)
[2019-01-14 11:33] LABS: HEPATITIS B CORE ANTIBODY IGM NEGATIVE (NEGATIVE); HEPATITIS C VIRUS ABY INDEX 0.1 INDEX (<0.8)
[2019-01-14 11:35] LABS: HEPATITIS A ANTIBODY IGM NEGATIVE (NEGATIVE)
--- NOTE | 2019-01-14 14:49 | REP ---
Abdominal right upper quadrant ultrasound for transaminase: The the patient has a cholecystectomy. There is no intrahepatic or extrahepatic biliary duct dilatation. The common biliary duct measures 4.5 mm in diameter. The hepatic parenchyma is hyperechoic compatible with hepatocellular disease. Ultrasound of the liver parenchyma is technically difficult because of the acoustic density of the liver and i limited intercostal acoustic windows and bowel gas. The pancreas is obscured by bowel gas. The right kidney is normal size measuring 11.3 x 6.2 x 5.3 cm. There is no right renal hydronephrosis, calculus, mass or cyst. There is no right upper quadrant ascites. Impression: The hepatic parenchyma is diffusely hyperechoic, compatible with hepatocellular disease. No hepatic masses are identified, however ultrasound of the liver is technically difficult as discussed. Electronically Signed by Miky Thompson MD 01/14/2019 02:40 P
[2019-01-14 18:16] VITALS: BP 127/61
[2019-01-15 06:40] VITALS: BP 130/63
[2019-01-15] MEDS: SERTRALINE HCL 50 MG TAB PO SCH (08:22)
--- NOTE | 2019-01-15 08:52 | MHIPNPDOC ---
[facility] Progress Note Progress Note DATE OF SERVICE: 01/15/19 HISTORY: Patient is a 33 -year-old [place], AD, male, with a psych history of depression and [facility] for depression/SI who brought to ED after seen as a walk-in at [facility] endorsing worsening depression since his grandfather last August and SI with plan to jump off a building or walk into traffic due to psychosocial stressors of break-up with his girlfriend 3wks ago and problems with his ex- per ED. Pt stated that his ex-girlfriend called him yesterday and they decided to meet up and talk but when met up and started talking they started to argue which caused him to have panic attack that subsided on it's own and when stopped his ex-girlfriend and he started to argue again which made him feel depressed, hopeless, and suicidal. VITAL SIGNS: See below. NEW TEST RESULTS: See below. CURRENT MEDICATIONS: See below. MENTAL STATUS EXAMINATION: General Appearance: well groomed, appears stated age, hospital scrubs/clothing Build: overweight Demeanor: cooperative Eye Contact: fair Activity: average Behavior: cooperative Speech: slow, low in volume, less impoverished Mood: less depressed, improved range Mood "alright" Affect: less constricted, less flat, congruent Thought Process: logical/linear, depressed Thought Content (Delusions): none reported, denies SI, HI, AVH Thought Content (Other): appropriate, other (grief) Thought Content (Aggressive): none reported Perception (Hallucinations): none reported Perception (Other): none reported Cognition (Impairment of): none reported Cognition(Intelligence Est.): average Oriented: Awake, Alert, Oriented times three Insight: poor Judgment: Poor Psychosis: Denies DIAGNOSES: 1. Major Depressive disorder, recurrent, severe, q/o psychosis 2. Generalized Anxiety disorder 3. PTSD 4. Nicotine use disorder ASSESSMENT:Pt seen and states that his mood is "alright" and appears much less constricted, less flat and, less depressed. Per treatment team [facility] believe pt may benefit from rn long term care treatment in the future given his severe depression. States zoloft feels beneficial for his mood and he's tolerating it well. States he slept well last night. Feels he is tolerating his medications and they're beneficial. He is attending groups and finding them helpful. He is social in the milieu and not isolating in his room, building a puzzle in the day room and smiling. He denies SI/HI, hallucinations, delusions. Pt feels safe here. MANAGEMENT PLAN: continue plan Medications: zoloft 150mg daily abilify 2.5mg daily TIME SPENT: 30 minutes. Vital Signs Vital Signs Date Time Temp Pulse Resp B/P (MAP) Pulse Ox O2 Delivery O2 Flow Rate FiO2 01/15/19 06:40 98.9 64 12 130/63 (85) 01/12/19 14:34 96 01/12/19 14:02 Room Air Current Medications Current Medications Acetaminophen (Tylenol Tab) 650 mg Q6HP PRN PO HEADACHE or DISCOMFORT; Start 01/12/19 at 13:45 Al Hydrox/Mg Hydrox/Simethicone (Mylanta) 30 ml Q4HP PRN PO HEARTBURN/INDIGESTION; Start 01/12/19 at 13:45 Aripiprazole (AbiLIFY) 2.5 mg BID PO Last administered on 01/15/19at 08:22; Start 01/12/19 at 14:00 Home Med (Med Rec Complete!) ASDIRECTED XX ; Start 01/12/19 at 13:45; Stop 01/12/19 at 13:45; Status DC Hydroxyzine HCl (Atarax) 25 mg Q6HP PRN PO ANXIETY; Start 01/13/19 at 11:30 Magnesium Hydroxide (Milk Of Magnesia) 30 ml DAILYPRN PRN PO CONSTIPATION; Start 01/12/19 at 13:45 Nicotine (Nicoderm Cq 14mg) 1 patch DAILYPRN PRN TD NICOTINE WITHDRAWAL; Start 01/12/19 at 17:45 Sertraline HCl (Zoloft) 100 mg DAILY PO Last administered on 01/13/19at 09:45; Start 01/12/19 at 14:00; Stop 01/13/19 at 11:40; Status DC Sertraline HCl (Zoloft) 150 mg DAILY PO Last administered on 01/15/19at 08:22; Start 01/14/19 at 09:00 Trazodone HCl (Desyrel) 50 mg QHSP PRN PO INSOMNIA Last administered on 01/13/19at 22:03; Start 01/12/19 at 13:45 Allergies Coded Allergies: No Known Drug Allergies (Verified Allergy, Unknown, 11/17/18) MASON POLO DO Jan 15, 2019 8:52 am
--- NOTE | 2019-01-15 15:01 | IPNPDOC ---
Text Note Date of Service The patient was seen on 01/15/19. NOTE Pt was seen and examined in [facility]. Pt is AAOx3, cooperative and conversant. Pt denies any excessive ETOH use. Denies any abdominal pain, N/V. Denies any headache or chest pain. PHE: Gen: AAOx3 NAD HEENT: no jaundice, no erythema, EOMI, BILLY, neck supple, no JVD CVS: S1 S2 no murmur Lung: clear bilat Ext: no edema no cyanosis no clubbing Neuro: motor sensory grossly intact Psych: mood affect appropriate Vital Signs Date Time Temp Pulse Resp B/P (MAP) Pulse Ox O2 Delivery O2 Flow Rate FiO2 01/15/19 06:40 98.9 64 12 130/63 (85) 01/14/19 18:16 99.2 76 16 127/61 (83) Current Medications Medications (Trade) Dose Ordered Sig/Orion Route PRN Reason Start Time Stop Time Status Last Admin Dose Admin Aripiprazole (AbiLIFY) 2.5 mg BID PO 01/12/19 14:00 01/15/19 08:22 2.5 MG Sertraline HCl (Zoloft) 150 mg DAILY PO 01/14/19 09:00 01/15/19 08:22 150 MG Trazodone HCl (Desyrel) 50 mg QHSP PRN PO INSOMNIA 01/12/19 13:45 01/13/19 22:03 50 MG Abdomen U/S Impression: The hepatic parenchyma is diffusely hyperechoic, compatible with hepatocellular disease. No hepatic masses are identified, however ultrasound of the liver is technically difficult as discussed. 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 Recommend check Hg A1C due to association between NAFLD and metabolic syndrome/T2DM Recommend check Lipid Profile Advise to follow low fat diet/decrease calorie intake/exercise Nutrition consult for weight loss and metabolic syndrome Cont antidepressant/antipsychotic as per primary team DVT prophylaxis : pt is ambulatory VS,Fishbone, I+O VS, Fishbone, I+O Vital Signs Date Time Temp Pulse Resp B/P (MAP) Pulse Ox O2 Delivery O2 Flow Rate FiO2 01/15/19 06:40 98.9 64 12 130/63 (85) 01/12/19 14:34 96 01/12/19 14:02 Room Air RUCHI ADAMS MD Jan 15, 2019 15:01
[2019-01-15 18:00] VITALS: BP 110/60
[2019-01-16 06:41] VITALS: BP 111/57
[2019-01-16] MEDS: SERTRALINE HCL 50 MG TAB PO SCH (08:08)
[2019-01-16 18:00] VITALS: BP 133/83
[2019-01-17 06:55] VITALS: BP 120/74
[2019-01-17] MEDS: SERTRALINE HCL 50 MG TAB PO SCH (08:43)
--- NOTE | 2019-01-17 09:47 | MHIPNPDOC ---
[facility] Progress Note Progress Note DATE OF SERVICE: 01/17/19 HISTORY: Patient is a 33 -year-old Gabonese-Argentine, AD, male, with a psych history of depression and [facility] admission 11/19/18 for depression/SI who brought to ED after seen as a walk-in at endorsing worsening depression since his grandfather last August and SI with plan to jump off a building or walk into traffic due to psychosocial stressors of break-up with his girlfriend 3wks ago and problems with his ex- per ED. Pt stated that his ex-girlfriend called him yesterday and they decided to meet up and talk but when met up and started talking they started to argue which caused him to have panic attack that subsided on it's own and when stopped his ex-girlfriend and he started to argue again which made him feel depressed, hopeless, and suicidal. VITAL SIGNS: See below. NEW TEST RESULTS: See below. CURRENT MEDICATIONS: See below. MENTAL STATUS EXAMINATION: General Appearance: well groomed, appears stated age, hospital scrubs/clothing Build: overweight Demeanor: cooperative Eye Contact: good Activity: average Behavior: cooperative Speech: reg rate, reg in volume Mood: improved depressed, improved range Mood "alright" Affect: improved range in mood, , congruent Thought Process: logical/linear, depressed Thought Content (Delusions): none reported, denies SI, HI, AVH Thought Content (Other): appropriate, other (grief) Thought Content (Aggressive): none reported Perception (Hallucinations): none reported Perception (Other): none reported Cognition (Impairment of): none reported Cognition(Intelligence Est.): average Oriented: Awake, Alert, Oriented times three Insight: poor Judgment: Poor Psychosis: Denies DIAGNOSES: 1. Major Depressive disorder, recurrent, severe, q/o psychosis 2. Generalized Anxiety disorder 3. PTSD 4. Nicotine use disorder ASSESSMENT:Pt seen and states that his mood is "ok" and appears greatly improved range in mood, smiling. States that knowing his family and girlfriend are supportive of him and care about him has improved his mood. Per treatment team believe pt may benefit from care home treatment in the future given his severe depression. States zoloft feels beneficial for his mood and he's tolerating it well. Thinks abilify may be causing day time fatigue and agreeable to changing dose to qhs. States he slept well last night w/o tra zodone need. Feels he is tolerating his medications and they're beneficial. He is attending groups and finding them helpful. He is social in the milieu and not isolating in his room. He denies SI/HI, hallucinations, delusions. Pt feels safe here. MANAGEMENT PLAN: continue plan Medications: zoloft 150mg daily abilify 5mg qhs TIME SPENT: 30 minutes. Vital Signs Vital Signs Date Time Temp Pulse Resp B/P (MAP) Pulse Ox O2 Delivery O2 Flow Rate FiO2 01/17/19 06:55 98.4 67 12 120/74 (89) 01/12/19 14:34 96 01/12/19 14:02 Room Air Current Medications Current Medications Acetaminophen (Tylenol Tab) 650 mg Q6HP PRN PO HEADACHE or DISCOMFORT; Start 01/12/19 at 13:45 Al Hydrox/Mg Hydrox/Simethicone (Mylanta) 30 ml Q4HP PRN PO HEARTBURN/INDIGESTION; Start 01/12/19 at 13:45 Aripiprazole (AbiLIFY) 2.5 mg BID PO Last administered on 01/17/19at 08:42; Start 01/12/19 at 14:00 Home Med (Med Rec Complete!) ASDIRECTED XX ; Start 01/12/19 at 13:45; Stop 01/12/19 at 13:45; Status DC Hydroxyzine HCl (Atarax) 25 mg Q6HP PRN PO ANXIETY; Start 01/13/19 at 11:30 Magnesium Hydroxide (Milk Of Magnesia) 30 ml DAILYPRN PRN PO CONSTIPATION; Start 01/12/19 at 13:45 Nicotine (Nicoderm Cq 14mg) 1 patch DAILYPRN PRN TD NICOTINE WITHDRAWAL; Start 01/12/19 at 17:45 Sertraline HCl (Zoloft) 100 mg DAILY PO Last administered on 01/13/19at 09:45; Start 01/12/19 at 14:00; Stop 01/13/19 at 11:40; Status DC Sertraline HCl (Zoloft) 150 mg DAILY PO Last administered on 01/17/19at 08:43; Start 01/14/19 at 09:00 Trazodone HCl (Desyrel) 50 mg QHSP PRN PO INSOMNIA Last administered on 01/13/19at 22:03; Start 01/12/19 at 13:45 Allergies Coded Allergies: No Known Drug Allergies (Verified Allergy, Unknown, 11/17/18) MASON POLO DO Jan 17, 2019 9:47 am
[2019-01-17 18:18] VITALS: BP 129/83
[2019-01-18 06:40] VITALS: BP 124/60
[2019-01-18] MEDS: SERTRALINE HCL 50 MG TAB PO SCH (09:03)
--- NOTE | 2019-01-18 09:28 | MHIPNPDOC ---
[facility] Progress Note Progress Note DATE OF SERVICE: 01/18/19 HISTORY: Patient is a 33 -year-old Wallisian-Saudi Arabian, AD, male, with a psych history of depression and [facility] admission 11/19/18 for depression/SI who brought to ED after seen as a walk-in at [facility] endorsing worsening depression since his grandfather last August and SI with plan to jump off a building or walk into traffic due to psychosocial stressors of break-up with his girlfriend 3wks ago and problems with his ex- per ED. Pt stated that his ex-girlfriend called him yesterday and they decided to meet up and talk but when met up and started talking they started to argue which caused him to have panic attack that subsided on it's own and when stopped his ex-girlfriend and he started to argue again which made him feel depressed, hopeless, and suicidal. VITAL SIGNS: See below. NEW TEST RESULTS: See below. CURRENT MEDICATIONS: See below. MENTAL STATUS EXAMINATION: General Appearance: well groomed, appears stated age, hospital scrubs/clothing Build: overweight Demeanor: cooperative Eye Contact: good Activity: average Behavior: cooperative Speech: reg rate, reg in volume Mood: improved depressed, improved range Mood "alright" Affect: improved range in mood, , congruent Thought Process: logical/linear, less depressed Thought Content (Delusions): none reported, denies SI, HI, AVH Thought Content (Other): appropriate, other (grief) Thought Content (Aggressive): none reported Perception (Hallucinations): none reported Perception (Other): none reported Cognition (Impairment of): none reported Cognition(Intelligence Est.): average Oriented: Awake, Alert, Oriented times three Insight: poor Judgment: Poor Psychosis: Denies DIAGNOSES: 1. Major Depressive disorder, recurrent, severe, q/o psychosis 2. Generalized Anxiety disorder 3. PTSD 4. Nicotine use disorder ASSESSMENT:Pt seen and states that his mood is "alright" and continues to appear to have greatly improved range in mood, smiling. States that knowing his family and girlfriend are supportive of him and care about him has improved his mood as per yesterday. Per treatment team [facility] believe pt may benefit from [facility] in the future given his severe depression. States zoloft feels benef icial for his mood and he's tolerating it well. No longer experiencing morning fatigue with abilify change to just nightly as is tolerating it better with good benefit in his mood. States he slept well last night w/o trazodone need. Feels he is tolerating his medications and they're beneficial. He is attending groups and finding them helpful. He is social in the milieu and not isolating in his room. He denies SI/HI, hallucinations, delusions. Pt feels safe here. MANAGEMENT PLAN: continue plan Medications: zoloft 150mg daily abilify 5mg qhs TIME SPENT: 30 minutes. Vital Signs Vital Signs Date Time Temp Pulse Resp B/P (MAP) Pulse Ox O2 Delivery O2 Flow Rate FiO2 01/18/19 06:40 97.9 65 20 124/60 (81) 01/12/19 14:34 96 01/12/19 14:02 Room Air Current Medications Current Medications Acetaminophen (Tylenol Tab) 650 mg Q6HP PRN PO HEADACHE or DISCOMFORT; Start 01/12/19 at 13:45 Al Hydrox/Mg Hydrox/Simethicone (Mylanta) 30 ml Q4HP PRN PO HEARTBURN/INDIGESTION; Start 01/12/19 at 13:45 Aripiprazole (AbiLIFY) 2.5 mg BID PO Last administered on 01/17/19at 08:42; Start 01/12/19 at 14:00; Stop 01/17/19 at 09:47; Status DC Aripiprazole (AbiLIFY) 5 mg QHS PO Last administered on 01/17/19at 21:58; Start 01/17/19 at 21:00 Home Med (Med Rec Complete!) ASDIRECTED XX ; Start 01/12/19 at 13:45; Stop 01/12/19 at 13:45; Status DC Hydroxyzine HCl (Atarax) 25 mg Q6HP PRN PO ANXIETY; Start 01/13/19 at 11:30 Magnesium Hydroxide (Milk Of Magnesia) 30 ml DAILYPRN PRN PO CONSTIPATION; Start 01/12/19 at 13:45 Nicotine (Nicoderm Cq 14mg) 1 patch DAILYPRN PRN TD NICOTINE WITHDRAWAL; Start 01/12/19 at 17:45 Sertraline HCl (Zoloft) 100 mg DAILY PO Last administered on 01/13/19at 09:45; Start 01/12/19 at 14:00; Stop 01/13/19 at 11:40; Status DC Sertraline HCl (Zoloft) 150 mg DAILY PO Last administered on 01/18/19at 09:03; Start 01/14/19 at 09:00 Trazodone HCl (Desyrel) 50 mg QHSP PRN PO INSOMNIA Last administered on 01/13/19at 22:03; Start 01/12/19 at 13:45 Allergies Coded Allergies: No Known Drug Allergies (Verified Allergy, Unknown, 11/17/18) MASON POLO DO Jan 18, 2019 9:28 am
[2019-01-18 18:00] VITALS: BP 140/77
[2019-01-18] MEDS: traZODone 50 MG TAB PO PRN (22:37)
[2019-01-19 06:40] VITALS: BP 112/55
[2019-01-19] MEDS: SERTRALINE HCL 50 MG TAB PO SCH (08:45)
--- NOTE | 2019-01-19 09:05 | MHIPNPDOC ---
[facility] Progress Note Progress Note DATE OF SERVICE: 01/19/19 HISTORY: Patient is a 33 -year-old Samoan-Northern Irish, AD, male, with a psych history of depression and [facility] admission 11/19/18 for depression/SI who brought to ED after seen as a walk-in at [facility] endorsing worsening depression since his grandfather last August and SI with plan to jump off a building or walk into traffic due to psychosocial stressors of break-up with his girlfriend 3wks ago and problems with his ex- per ED. Pt stated that his ex-girlfriend called him yesterday and they decided to meet up and talk but when met up and started talking they started to argue which caused him to have panic attack that subsided on it's own and when stopped his ex-girlfriend and he started to argue again which made him feel depressed, hopeless, and suicidal. VITAL SIGNS: See below. NEW TEST RESULTS: See below. CURRENT MEDICATIONS: See below. MENTAL STATUS EXAMINATION: General Appearance: well groomed, appears stated age, hospital scrubs/clothing Build: overweight Demeanor: cooperative Eye Contact: good Activity: average Behavior: cooperative Speech: reg rate, reg in volume Mood: improved depressed, improved range Mood "alright" Affect: improved range in mood, , congruent Thought Process: logical/linear, less depressed Thought Content (Delusions): none reported, denies SI, HI, AVH Thought Content (Other): appropriate, other (grief) Thought Content (Aggressive): none reported Perception (Hallucinations): none reported Perception (Other): none reported Cognition (Impairment of): none reported Cognition(Intelligence Est.): average Oriented: Awake, Alert, Oriented times three Insight: poor Judgment: Poor Psychosis: Denies DIAGNOSES: 1. Major Depressive disorder, recurrent, severe, q/o psychosis 2. Generalized Anxiety disorder 3. PTSD 4. Nicotine use disorder ASSESSMENT:Pt seen and states that his mood is "pretty good" and continues to appear to have greatly improved range in mood, smiling. States that knowing his family and girlfriend are supportive of him and care about him has improved his mood as per yesterday. Per treatment team [facility] believe pt may benefit from halfway treatment in the future given his severe depression. States zoloft feels b eneficial for his mood and he's tolerating it well. No longer experiencing morning fatigue with abilify change to just nightly as is tolerating it better with good benefit in his mood. States he slept well last night w/o trazodone need. Feels he is tolerating his medications and they're beneficial. He is attending groups and finding them helpful. He is social in the milieu and not isolating in his room. He denies SI/HI, hallucinations, delusions. Pt feels safe here. No change from yesterday. MANAGEMENT PLAN: continue plan Medications: zoloft 150mg daily abilify 5mg qhs TIME SPENT: 30 minutes. Vital Signs Vital Signs Date Time Temp Pulse Resp B/P (MAP) Pulse Ox O2 Delivery O2 Flow Rate FiO2 01/19/19 06:40 98.0 60 12 112/55 (74) Current Medications Current Medications Acetaminophen (Tylenol Tab) 650 mg Q6HP PRN PO HEADACHE or DISCOMFORT; Start 01/12/19 at 13:45 Al Hydrox/Mg Hydrox/Simethicone (Mylanta) 30 ml Q4HP PRN PO HEARTBURN/INDIGESTION; Start 01/12/19 at 13:45 Aripiprazole (AbiLIFY) 2.5 mg BID PO Last administered on 01/17/19at 08:42; Start 01/12/19 at 14:00; Stop 01/17/19 at 09:47; Status DC Aripiprazole (AbiLIFY) 5 mg QHS PO Last administered on 01/18/19at 22:38; Start 01/17/19 at 21:00 Home Med (Med Rec Complete!) ASDIRECTED XX ; Start 01/12/19 at 13:45; Stop 01/12/19 at 13:45; Status DC Hydroxyzine HCl (Atarax) 25 mg Q6HP PRN PO ANXIETY; Start 01/13/19 at 11:30 Magnesium Hydroxide (Milk Of Magnesia) 30 ml DAILYPRN PRN PO CONSTIPATION; Start 01/12/19 at 13:45 Nicotine (Nicoderm Cq 14mg) 1 patch DAILYPRN PRN TD NICOTINE WITHDRAWAL; Start 01/12/19 at 17:45 Sertraline HCl (Zoloft) 100 mg DAILY PO Last administered on 01/13/19at 09:45; Start 01/12/19 at 14:00; Stop 01/13/19 at 11:40; Status DC Sertraline HCl (Zoloft) 150 mg DAILY PO Last administered on 01/19/19at 08:45; Start 01/14/19 at 09:00 Trazodone HCl (Desyrel) 50 mg QHSP PRN PO INSOMNIA Last administered on 01/18/19at 22:37; Start 01/12/19 at 13:45 Allergies Coded Allergies: No Known Drug Allergies (Verified Allergy, Unknown, 11/17/18) MASON POLO DO Jan 19, 2019 9:05 am
[2019-01-19 18:15] VITALS: BP 134/77
[2019-01-20] MEDS: traZODone 50 MG TAB PO PRN ×2 (00:03→22:55)
[2019-01-20 06:28] VITALS: BP 118/69
[2019-01-20] MEDS: SERTRALINE HCL 50 MG TAB PO SCH (09:17)
[2019-01-20 18:04] VITALS: BP 138/83
[2019-01-20] MEDS: CYCLOBENZAPRINE 10 MG TAB PO PRN (22:49)
[2019-01-21 05:59] VITALS: BP 138/65
[2019-01-21] MEDS: SERTRALINE HCL 50 MG TAB PO SCH (09:20)
--- NOTE | 2019-01-21 09:35 | MHIPNPDOC ---
[facility] Progress Note Progress Note DATE OF SERVICE: 01/21/19 HISTORY: Patient is a 33 -year-old Palestinian-Sierra Leonean, AD, male, with a psych history of depression and [facility] admission 11/19/18 for depression/SI who brought to ED after seen as a walk-in at [facility] endorsing worsening depression since his grandfather last August and SI with plan to jump off a building or walk into traffic due to psychosocial stressors of break-up with his girlfriend 3wks ago and problems with his ex- per ED. Pt stated that his ex-girlfriend called him yesterday and they decided to meet up and talk but when met up and started talking they started to argue which caused him to have panic attack that subsided on it's own and when stopped his ex-girlfriend and he started to argue again which made him feel depressed, hopeless, and suicidal. VITAL SIGNS: See below. NEW TEST RESULTS: See below. CURRENT MEDICATIONS: See below. MENTAL STATUS EXAMINATION: General Appearance: well groomed, appears stated age, hospital scrubs/clothing Build: overweight Demeanor: cooperative Eye Contact: good Activity: average Behavior: cooperative Speech: reg rate, reg in volume Mood: improved depressed, improved range Mood "alright" Affect: improved range in mood, , congruent Thought Process: logical/linear, less depressed Thought Content (Delusions): none reported, denies SI, HI, AVH Thought Content (Other): appropriate, other (grief) Thought Content (Aggressive): none reported Perception (Hallucinations): none reported Perception (Other): none reported Cognition (Impairment of): none reported Cognition(Intelligence Est.): average Oriented: Awake, Alert, Oriented times three Insight: good Judgment: good Psychosis: Denies DIAGNOSES: 1. Major Depressive disorder, recurrent, severe, q/o psychosis 2. Generalized Anxiety disorder 3. PTSD 4. Nicotine use disorder ASSESSMENT:Pt seen and states that his mood is "good" and continues to appear to have greatly improved range in mood, smiling. States he's looking forward to going to [facility] in [place] with his Moisés on Thursday. States that knowing his family and girlfriend are supportive of him and care about him has improved his mood as per yesterday. Per treatment team [facility] believe pt may benefit from alf treatment in the future given his severe depression. States zoloft feels beneficial for his mood and he's tolerating it well. No longer experiencing morning fatigue with abilify change to just nightly as is tolerating it better with good benefit in his mood. States he slept well last night w/o trazodone need. Feels he is tolerating his medications and they're beneficial. He is attending groups and finding them helpful. He is social in the milieu and not isolating in his room. He denies SI/HI, hallucinations, delusions. Pt feels safe here. No change from yesterday. MANAGEMENT PLAN: continue plan Medications: zoloft 150mg daily abilify 5mg qhs TIME SPENT: 30 minutes. Vital Signs Vital Signs Date Time Temp Pulse Resp B/P (MAP) Pulse Ox O2 Delivery O2 Flow Rate FiO2 01/21/19 05:59 99.3 69 16 138/65 (89) Current Medications Current Medications Acetaminophen (Tylenol Tab) 650 mg Q6HP PRN PO HEADACHE or DISCOMFORT; Start 01/12/19 at 13:45 Al Hydrox/Mg Hydrox/Simethicone (Mylanta) 30 ml Q4HP PRN PO HEARTBURN/INDIGESTION; Start 01/12/19 at 13:45 Aripiprazole (AbiLIFY) 2.5 mg BID PO Last administered on 01/17/19at 08:42; Start 01/12/19 at 14:00; Stop 01/17/19 at 09:47; Status DC Aripiprazole (AbiLIFY) 5 mg QHS PO Last administered on 01/20/19at 21:30; Start 01/17/19 at 21:00 Cyclobenzaprine HCl (Flexeril) 10 mg TID PRN PO MUSCLE SPASMS Last administered on 01/20/19at 22:49; Start 01/19/19 at 09:45 Home Med (Med Rec Complete!) ASDIRECTED XX ; Start 01/12/19 at 13:45; Stop 01/12/19 at 13:45; Status DC Hydroxyzine HCl (Atarax) 25 mg Q6HP PRN PO ANXIETY; Start 01/13/19 at 11:30 Magnesium Hydroxide (Milk Of Magnesia) 30 ml DAILYPRN PRN PO CONSTIPATION; Start 01/12/19 at 13:45 Nicotine (Nicoderm Cq 14mg) 1 patch DAILYPRN PRN TD NICOTINE WITHDRAWAL; Start 01/12/19 at 17:45 Sertraline HCl (Zoloft) 100 mg DAILY PO Last administered on 01/13/19at 09:45; Start 01/12/19 at 14:00; Stop 01/13/19 at 11:40; Status DC Sertraline HCl (Zoloft) 150 mg DAILY PO Last administered on 01/20/19at 09:17; Start 01/14/19 at 09:00 Trazodone HCl (Desyrel) 50 mg QHSP PRN PO INSOMNIA Last administered on 01/20/19at 22:55; Start 01/12/19 at 13:45 Allergies Coded Allergies: No Known Drug Allergies (Verified Allergy, Unknown, 11/17/18) MASON POLO DO Jan 21, 2019 9:10 am
[2019-01-21 18:00] VITALS: BP 138/85
[2019-01-21] MEDS: traZODone 50 MG TAB PO PRN (23:40)
[2019-01-22 06:40] VITALS: BP 120/62
[2019-01-22] MEDS: SERTRALINE HCL 50 MG TAB PO SCH (08:21)
[2019-01-22 18:04] VITALS: BP 144/80
[2019-01-22] MEDS: traZODone 50 MG TAB PO PRN (23:30)
[2019-01-23 06:00] VITALS: BP 125/58
[2019-01-23] MEDS: SERTRALINE HCL 50 MG TAB PO SCH (09:10)
[2019-01-23 18:04] VITALS: BP 148/69
[2019-01-23] MEDS: CYCLOBENZAPRINE 10 MG TAB PO PRN (23:04)
[2019-01-23] MEDS: traZODone 50 MG TAB PO PRN (23:04)
[2019-01-24] MEDS: SERTRALINE HCL 50 MG TAB PO SCH (03:28)
--- NOTE | 2019-01-25 13:05 | MHDSPDOC ---
[facility] Discharge Summary Discharge Summary DATE OF ADMISSION: Jan 12, 2019 at 13:33 DATE OF DISCHARGE: Jan 24, 2019 at 05:52 DISCHARGE DIAGNOSES: 1. Major Depressive disorder, recurrent, severe, q/o psychosis 2. Generalized Anxiety disorder 3. PTSD 4. Nicotine use disorder REASON FOR ADMISSION: Patient is a 33 -year-old Maldivian-Puerto Rican, AD, male, with a psych history of depression and [facility] admission 11/19/18 for depression/SI who brought to ED after seen as a walk-in at [facility] endorsing worsening depression since his grandfather last August and SI with plan to jump off a building or walk into traffic due to psychosocial stressors of break-up with his girlfriend 3wks ago and problems with his ex- per ED. Pt stated that his ex-girlfriend called him yesterday and they decided to meet up and talk but when met up and started talking they started to argue which caused him to have panic attack that subsided on it's own and when stopped his ex-girlfriend and he started to argue again which made him feel depressed, hopeless, and suicidal. CONSULTANTS INVOLVED: none TREATMENT AND PROGRESS ON THE UNIT : Pt was admitted to [facility], seen for psychiatric assessment and restarted on outpatient zoloft increased to 150mg daily and abilify 5mg qhs. He was provided trazodone 50mg qhs prn insomnia. Pt found his medications beneficial and tolerated them well. He attended groups daily during his stay. His symptoms improved with treatment. On day of discharge he denied depression, anxiety, insomnia, SI/HI, hallucinations, delusions. He was discharged to [facility] in [place] with his Moisés today. He felt safe for discharge. DISCHARGE ASSESSMENT: Pt seen and states that his mood is "good" and continues to appear to have greatly improved range in mood, smiling. States he's looking forward to going to [facility] in [place] with his Moisés today. States that knowing his family and girlfriend are supportive of him and care about him has improved his mood as per yesterday. Per treatment team [facility] believe pt may benefit from lobsterman treatment in the future given his severe depression. States zoloft feels beneficial for his mood and he's tolerating it well. No longer experiencing morning fatigue with abilify change to just nightly as is tolerating it better with good benefit in his mood. States he slept well last night w/o trazodone need. Feels he is tolerating his medications and they're beneficial. He is attending groups and finding them helpful. He is social in the milieu and not isolating in his room. He denies depression, anxious, insomnia, SI/HI, hallucinations, delusions. Pt feels safe for d/c to care home treatment in [place] with his [place]isés. MENTAL STATUS EXAMINATION ON DISCHARGE: General Appearance: well groomed, appears stated age, hospital scrubs/clothing Build: overweight Demeanor: cooperative Eye Contact: good Activity: average Behavior: cooperative Speech: reg rate, reg in volume Mood: euthymic, full Mood "good" Affect: congruent Thought Process: logical/linear Thought Content (Delusions): none reported, denies SI, HI, AVH Thought Content (Other): appropriate, other (grief) Thought Content (Aggressive): none reported Perception (Hallucinations): none reported Perception (Other): none reported Cognition (Impairment of): none reported Cognition(Intelligence Est.): average Oriented: Awake, Alert, Oriented times three Insight: good Judgment: good Psychosis: Denies MEDICATIONS ON DISCHARGE: zoloft 150mg daily abilify 5mg qhs trazodone 50mg qhs prn insomnia PLAN/FOLLOWUP ARRANGEMENTS: [facility] [facility] [place] [facility] his [place] [facility] The amount of time spent in the coordination of care for this patient was approximately 30 minutes. Vital Signs/I&Os Vital Signs Date Time Temp Pulse Resp B/P (MAP) Pulse Ox O2 Delivery O2 Flow Rate FiO2 01/23/19 18:04 98.5 88 16 148/69 (95) 01/22/19 06:40 99 Medications Scheduled Trazodone HCl (Trazodone HCl) 50 Mg Tablet, 50 MG PO QHS, (Reported) Scheduled PRN Cyclobenzaprine HCl (Cyclobenzaprine HCl) 10 Mg Tablet, 10 MG PO TID PRN for MUSCLE SPASMS, (Reported) Allergies Coded Allergies: No Known Drug Allergies (Verified Allergy, Unknown, 11/17/18) MASON POLO DO Jan 25, 2019 13:05
== END 2019-01-24 05:52 | DRG 885 ==
LOC: M ED 09:29 → M ED INP 13:33 → M PSY 14:30
PROVIDERS: ADMIT Psychiatry & Neurology Psychiatry; ATTEND Psychiatry & Neurology Psychiatry
DX: F33.2 Major depressive disorder, recurrent severe without psychotic features (principal); R45.851 Suicidal ideations; F41.1 Generalized anxiety disorder; F43.10 Post-traumatic stress disorder, unspecified; F17.200 Nicotine dependence, unspecified, uncomplicated; E66.9 Obesity, unspecified; Z79.899 Other long term (current) drug therapy

== ENCOUNTER 2019-05-03 11:24 | Emergency (ER) | payer OTHER ==
[~2019-05-03] VITALS: Ht 165.1 cm; Wt 86.4 kg
[~2019-05-03 11:24] MED LIST changes: +CYCL10TA PO; +SERT-138 PO; +SERT25TA21 PO; -SERT25TA88 PO; +TRAZ1TAB10 PO; +ZANT150T40 PO; -ZANTTAB PO
[2019-05-03] MEDS ORDERED: SERT-138 PO (11:45)
[2019-05-03] MEDS ORDERED: ZOLP10TA2 (11:45)
[2019-05-03] MEDS ORDERED: HYDR-4570 (11:45)
[2019-05-03] MEDS ORDERED: SILD50TA PO ×2 (12:04→22:00)
[2019-05-03] MEDS ORDERED: NAPR-885 PO (12:04)
[2019-05-03] MEDS ORDERED: CYCL5TAB PO (12:04)
[2019-05-03] MEDS ORDERED: D-50CAP PO (12:04)
[2019-05-03 12:41] LABS: HEMATOCRIT 43.5 % (42.0-52.0); HEMOGLOBIN 14.7 g/dl (13.5-17.5); MEAN CORPUSCULAR HGB CONC 33.8 g/dl (32.0-36.5); MEAN CORPUSCULAR VOLUME 88.8 fl (80.0-96.0); PLATELET COUNT, AUTOMATED 269 10^3/uL (150-450); WHITE BLOOD COUNT 8.3 10^3/uL (4.0-10.0)
[2019-05-03 13:02] LABS: AMPHETAMINES LEVEL URINE NEGATIVE (NEGATIVE); BARBITURATES URINE NEGATIVE (NEGATIVE); BENZODIAZEPINES URINE NEGATIVE (NEGATIVE); CANNABINOIDS URINE NEGATIVE (NEGATIVE); COCAINE METABOLITE URINE NEGATIVE (NEGATIVE); METHADONE URINE NEGATIVE (NEGATIVE); OPIATES URINE NEGATIVE (NEGATIVE); PHENCYCLIDINE URINE NEGATIVE (NEGATIVE)
[2019-05-03 13:15] LABS: ACETAMINOPHEN LEVEL < 2.0 UG/ML (10.0-30.0); ALT/SGPT 87 U/L (12-78); BILIRUBIN,DIRECT 0.2 MG/DL (0.0-0.2); BILIRUBIN,TOTAL 0.6 MG/DL (0.2-1.0); BLOOD UREA NITROGEN 11 MG/DL (7-18); CALCIUM LEVEL 9.1 MG/DL (8.5-10.1); CARBON DIOXIDE LEVEL 27 MEQ/L (21-32); CHLORIDE LEVEL 105 MEQ/L (98-107); CREATININE FOR GFR 0.94 MG/DL (0.70-1.30); ETHYL ALCOHOL (ETHANOL) < 0.003 % (0.000-0.010); GLOMERULAR FILTRATION RATE > 60.0 (>60); GLUCOSE, FASTING 133 MG/DL (70-100); POTASSIUM SERUM 3.8 MEQ/L (3.5-5.1); SALICYLATE LEVEL < 1.7 MG/DL (5.0-30.0); SODIUM LEVEL 139 MEQ/L (136-145); TOTAL PROTEIN 7.3 GM/DL (6.4-8.2)
--- NOTE | 2019-05-03 21:35 | ECGEPIP ---
[facility] - ED Test Date: 2019-05-03 Pat Name: KRISTA SWEENEY Department: Room: - Gender: Male Sagger Soak: KC : 1985 Requested By: DOROTHEA Ngo Order Number: [id number] Reading MD: Tal Wan Measurements Intervals [place] Rate: 81 P: 10 HI: 172 QRS: 6 QRSD: 88 T: 25 QT: 348 QTc: 406 Interpretive Statements SINUS RHYTHM BENIGN EARLY REPOLARIZATION SIMILAR TO 11/18/18 Electronically Signed on 05-03-2019 21:35:26 EDT by Tal Wan
[2019-05-03] MEDS ORDERED: ZOLP10TA2 PO (22:00)
[2019-05-03] MEDS ORDERED: HYDR-3363 PO (22:00)
[2019-05-03] MEDS ORDERED: VITA1CAP25 PO (22:00)
[2019-05-04 08:40] VITALS: BP 122/64
== END 2019-05-04 08:41 ==
LOC: M ED 11:24
DX: F32.9 Major depressive disorder, single episode, unspecified (principal); R45.851 Suicidal ideations; F17.200 Nicotine dependence, unspecified, uncomplicated; Z63.79 Other stressful life events affecting family and household; M54.5 Low back pain; Z90.49 Acquired absence of other specified parts of digestive tract; F41.9 Anxiety disorder, unspecified; Z79.899 Other long term (current) drug therapy; F43.10 Post-traumatic stress disorder, unspecified; Z91.82 Personal history of military deployment; Z63.5 Disruption of family by separation and divorce
CPT/HCPCS: 36415; 80048; 80076; 80307; 84443; 85027; 93005; 99284; G0480